=== PATIENT | male | born 1995 | race Caucasian/White ===

== ENCOUNTER 2016-10-19 01:45 | Emergency (ER) | payer BC ==
--- NOTE | 2016-10-19 01:58 | PDOC ---
History of Present Illness - General Stated Complaint: CHEST PAIN Time Seen by Provider: 10/19/16 01:55 History Source: Patient Exam Limitations: No Limitations - History of Present Illness Initial Comments: 10/19/16 02:29 21-year-old male presents to the emergency department complaining of midsternal 4/10 dull nonradiating intermittent chest pains which started at 11:30 this morning. Pain is exacerbated when laying supine alleviated at rest while sitting or standing. Patient denies any headache, dizziness, lightheadedness, nausea/vomiting, fever/chills, neck pain, shortness of breath, abdominal pains, extremity numbness or tingling sensation. Patient says he has similar episodes of chest pains for over 2 years. He has seen 2 sandfill operator surface's over the past year. The first sandfill operator surface informed him that it was irregular heart rate the second sandfill operator surface's says Presenting Symptoms: Chest Pain Timing/Duration: reports: intermittent Past History - Travel Traveled outside of the country in the last 30 days: No Close contact w/someone who was outside of country & ill: No - Past Medical History Allergies/Adverse Reactions: Allergies Allergy/AdvReac Type Severity Reaction Status Date / Time No Known Allergies Allergy Verified 10/19/16 02:13 Home Medications: Ambulatory Orders NK [No Known Home Medication] 10/19/16 Review of Systems - Review of Systems Able to Perform ROS?: Yes Comments:: 10/19/16 01:56 CONSTITUTIONAL: Absent: fever, chills, diaphoresis, generalized weakness, malaise, loss of appetite HEENT: Absent: rhinorrhea, nasal congestion, throat pain, throat swelling, difficulty swallowing, mouth swelling, ear pain, eye pain, visual Changes CARDIOVASCULAR: +chest pain Absent: loss of consciousness, palpitations, irregular heart rate, peripheral edema RESPIRATORY: Absent: cough, shortness of breath, dyspnea with exertion, orthopnea, wheezing, stridor, hemoptysis GASTROINTESTINAL: Absent: abdominal pain, abdominal distension, nausea, vomiting, diarrhea, constipation, melena, hematochezia GENITOURINARY: Absent: dysuria, frequency, urgency, hesitancy, hematuria, flank pain, genital pain MUSCULOSKELETAL: Absent: myalgia, arthralgia, joint swelling SKIN: Absent: rash, itching, pallor HEMATOLOGIC/IMMUNOLOGIC: Absent: easy bleeding, easy bruising, lymphadenopathy, frequent infections ENDOCRINE: Absent: unexplained weight gain, unexplained weight loss, heat intolerance, cold intolerance NEUROLOGIC: Absent: headache, focal weakness or paresthesias, dizziness, unsteady gait, seizure, mental status changes, bladder or bowel incontinence PSYCHIATRIC: Absent: anxiety, depression, suicidal or homicidal ideation, hallucinations. Is the patient limited Irish proficient: No *Physical Exam - Vital Signs Last Vital Signs Temp Pulse Resp BP Pulse Ox 98.4 F 67 18 146/76 99 10/19/16 02:03 10/19/16 02:03 10/19/16 02:03 10/19/16 02:03 10/19/16 02:03 - Physical Exam Comments: 10/19/16 01:57 GENERAL: Well developed, well nourished. Awake and alert. No acute distress. HEENT: Normocephalic, atraumatic. PERRLA, EOMI. No conjunctival pallor. Sclera are non- icteric. Moist mucous membranes. Oropharynx is clear. NECK: Supple. Full ROM. No JVD. Carotid pulses 2+ and symmetric, without bruits. No thyromegaly. No lymphadenopathy. CARDIOVASCULAR: Regular rate and rhythm. No murmurs, rubs, or gallops. Distal pulses are 2+ and symmetric. PULMONARY: No evidence of respiratory distress. Lungs clear to auscultation bilaterally. No wheezing, rales or rhonchi. ABDOMINAL: Soft. Non-tender. Non-distended. No rebound or guarding. No organomegaly. Normoactive bowel sounds. MUSCULOSKELETAL Normal range of motion at all joints. No bony deformities or tenderness. No CVA tenderness. EXTREMITIES: No cyanosis. No clubbing. No edema. No calf tenderness. SKIN: Warm and dry. Normal capillary refill. No rashes. No jaundice. NEUROLOGICAL: Alert, awake, appropriate. Cranial nerves 2-12 intact. No deficits to light touch and temperature in face, upper extremities and lower extremities. No motor deficits in the in face, upper extremities and lower extremities. Normoreflexic in the upper and lower extremities. Normal speech. Toes are down- going bilaterally. Gait is normal without ataxia. PSYCHIATRIC: Cooperative. Good eye contact. Appropriate mood and affect. ED Treatment Course - LABORATORY CBC & Chemistry Diagram: 10/19/16 02:20 10/19/16 03:05 - ADDITIONAL ORDERS Additional order review: Laboratory Results 10/19/16 10/19/16 10/19/16 03:05 02:20 02:20 Sodium 143 Cancelled Potassium 4.0 Cancelled Chloride 107 Cancelled Carbon Dioxide 26 Cancelled Anion Gap 10 Cancelled BUN 18 Cancelled Creatinine 1.1 Cancelled Creat Clearance w eGFR > 60 Cancelled Random Glucose 88 Cancelled Calcium 8.2 L Cancelled Total Bilirubin 0.4 Cancelled AST 17 Cancelled ALT 39 Cancelled Alkaline Phosphatase 71 Cancelled Creatine Kinase 102 Cancelled Troponin I < 0.02 Cancelled Total Protein 6.8 Cancelled Albumin 3.6 Cancelled TSH 4.66 H Cancelled 10/19/16 02:20 RBC 5.34 MCV 82.5 MCHC 33.2 RDW 13.2 MPV 8.3 Neutrophils % 52.2 Lymphocytes % 36.7 Monocytes % 7.0 Eosinophils % 3.3 Basophils % 0.8 *DC/Admit/Observation/Transfer Diagnosis at time of Disposition: Chest pain Qualifiers: Chest pain type: other chest pain Qualified Code(s): R07.89 - Other chest pain Hypothyroid Qualifiers: Hypothyroidism type: other Qualified Code(s): E03.8 - Other specified hypothyroidism - Discharge Dispostion Disposition: HOME Condition at time of disposition: Stable Admit: No - Referrals Referrals: Aren Warren MD [Staff Physician] - Jeremy Freeman MD [Staff Physician] - Chong Schuler MD [Staff Physician] - - Patient Instructions Printed Discharge Instructions: DI for Atypical Chest Pain Additional Instructions: Follow up with your sandfill operator surface and your primary care physician REturn to the ER for severe/persistent/worsening symptoms. Be sure to follow up with an neon sign erector
[2016-10-19] MEDS ORDERED: SODIUM CHLORIDE 1,000 ML IV SCH (02:00)
[2016-10-19 02:13] VITALS: TEMP 98.4; BMI 27.3
[2016-10-19 02:36] LABS: BASOPHIL 0.8 % (0-2.0); EOSINOPHIL 3.3 % (0-4.5); MCH 27.4 pg (25.7-33.7); MCHC 33.2 g/dl (32.0-35.9); MEAN CELL VOLUME 82.5 fl (80-96); MEAN PLT VOLUME 8.3 fl (7.5-11.1); NEUTROPHILS 52.2 % (42.8-82.8); PLATELET COUNT 245 K/MM3 (134-434); RDW 13.2 % (11.9-15.9); WHITE BLOOD COUNT 8.9 K/mm3 (4.0-10.0)
[2016-10-19 03:41] LABS: ALBUMIN 3.6 g/dl (3.4-5.0); ANION GAP 10 (8-16); BILIRUBIN,TOTAL 0.4 mg/dL (0.2-1.0); CALCIUM 8.2 mg/dL (8.5-10.1); CO2 26 mmol/L (21-32); COCKROFT - GAULT 118.26; CREATININE 1.1 mg/dL (0.7-1.3); GLUCOSE,RANDOM 88 mg/dL (74-106); SGOT/AST 17 U/L (15-37); SGPT/ALT 39 U/L (12-78); TOT PROT 6.8 g/dl (6.4-8.2)
[2016-10-19 03:49] LABS: ALK PHOS 71 U/L (45-117); THYROID STIMULATING HORMONE 4.66 uIU/ml (0.358-3.74); TROPONIN I < 0.02 ng/ml (0.00-0.05)
--- NOTE | 2016-10-19 14:17 | EKG ---
Test Reason : Blood Pressure : / mmHG Vent. Rate : 064 BPM Atrial Rate : 064 BPM P-R Int : 148 ms QRS Dur : 098 ms QT Int : 382 ms P-R-T Axes : 053 067 041 degrees QTc Int : 394 ms NORMAL SINUS RHYTHM NORMAL ECG NO PREVIOUS ECGS AVAILABLE BASELINE ARTIFACT Confirmed by OLGA ROMERO, CHRISTIE ([id number]) on 10/19/2016 2:16:59 PM Referred By: Confirmed By:CHRISTIE ESPINOZA MD
[2016-10-25 09:15] VITALS: BP 138/73; PULSE 65
== END 2016-10-19 04:26 | disposition home or self-care (01) ==
LOC: JER 01:45
DX: R07.89 Other chest pain (principal); E03.8 Other specified hypothyroidism
CPT/HCPCS: 36415; 80053; 82550; 84443; 84484; 85025; 93005; 93010; 99281-25; 99283-25

== ENCOUNTER 2018-03-29 19:48 | Emergency (ER) | payer BC ==
--- NOTE | 2018-03-29 19:52 | PDOC ---
Rapid Medical Evaluation Time Seen by Provider: 03/29/18 19:51 Medical Evaluation: Allergies Allergy/AdvReac Type Severity Reaction Status Date / Time No Known Allergies Allergy Verified 10/19/16 02:13 03/29/18 19:52 The patient presents with a chief complaint of: took 20 tabs tylenol pm 2 hours ago I have performed a brief in-person evaluation of this patient. Pertinent physical exam findings: vss, stable I have ordered the following: labs, tox screen The patient will proceed to the ED for further evaluation. 03/29/18 19:56
[2018-03-29 19:54] VITALS: BMI 28.1
--- NOTE | 2018-03-29 20:35 | PDOC ---
History of Present Illness - General Chief Complaint: Overdose Stated Complaint: OVERDOSE Time Seen by Provider: 03/29/18 19:51 History Source: Patient Exam Limitations: No Limitations - History of Present Illness Initial Comments: 03/29/18 20:33 Patient is a 22M with no medical history here today complaining of overdose. He states that he took about 20 tylenol PMs at 6pm because he couldn't sleep. Patient denies SI/HI, intent to hurt himself. Denies psychiatric history, but states that he did do this before. Endorses nausea, but states that otherwise he feels find. Denies fevers, chills, vomiting, chest pain, shortness of breath , abdominal pain and dysuria. Denies illicit drug use, denies etoh, denies coingestants. Past History - Past Medical History Allergies/Adverse Reactions: Allergies Allergy/AdvReac Type Severity Reaction Status Date / Time No Known Allergies Allergy Verified 10/19/16 02:13 Home Medications: Ambulatory Orders NK [No Known Home Medication] 10/19/16 COPD: No - Suicide/Smoking/Psychosocial Hx Smoking History: Current every day smoker Have you smoked in the past 12 months: Yes Number of Cigarettes Smoked Daily: 7 Information on smoking cessation initiated: No Hx Alcohol Use: Yes Drug/Substance Use Hx: No Substance Use Type: None Review of Systems - Review of Systems Comments:: 03/29/18 20:34 GENERAL/CONSTITUTIONAL: No fever or chills. No weakness. HEAD, EYES, EARS, NOSE AND THROAT: No change in vision. No sore throat. CARDIOVASCULAR: No chest pain or shortness of breath RESPIRATORY: No cough, wheezing, or hemoptysis. GASTROINTESTINAL: +nausea, no vomiting, diarrhea or constipation. GENITOURINARY: No dysuria, frequency, or change in urination. MUSCULOSKELETAL: No joint or muscle swelling or pain. No neck or back pain. SKIN: No rash NEUROLOGIC: No headache, vertigo, loss of consciousness, or change in strength/ sensation. ENDOCRINE: No increased thirst. No abnormal weight change HEMATOLOGIC/LYMPHATIC: No anemia, easy bleeding, or history of blood clots. ALLERGIC/IMMUNOLOGIC: No hives or skin allergy. *Physical Exam - Vital Signs Last Vital Signs Temp Pulse Resp BP Pulse Ox 98.1 F 80 18 149/90 100 03/29/18 19:52 03/29/18 19:52 03/29/18 19:52 03/29/18 19:52 03/29/18 19:52 - Physical Exam Comments: 03/29/18 20:34 GENERAL: Awake, alert, and fully oriented, in no acute distress PSYCH: Denies SI/HI, normal affect, no pressured speech, no flight of ideas. HEAD: No signs of trauma, normocephalic, atraumatic EYES: PERRLA, EOMI, sclera anicteric, conjunctiva clear ENT: Auricles normal inspection, hearing grossly normal, nares patent, oropharynx clear without exudates. Moist mucosa NECK: Normal ROM, supple, no lymphadenopathy, JVD, or masses LUNGS: No distress, speaks full sentences, clear to auscultation bilaterally HEART: Regular rate and rhythm, normal S1 and S2, no murmurs, rubs or gallops, peripheral pulses normal and equal bilaterally. ABDOMEN: Soft, nontender, normoactive bowel sounds. No guarding, no rebound. No masses EXTREMITIES: Normal inspection, Normal range of motion, no edema. No clubbing or cyanosis. NEUROLOGICAL: Cranial nerves II through XII grossly intact. Normal speech, normal gait, no focal sensorimotor deficits SKIN: Warm, Dry, normal turgor, no rashes or lesions noted. ED Treatment Course - LABORATORY CBC & Chemistry Diagram: 03/29/18 20:35 03/29/18 20:35 Medical Decision Making - Medical Decision Making 03/29/18 20:40 Patient is 22M here today with overdose. 1:1 ordered, charge nurse notified. Vitals normal and stable. DDx includes, but is not limited to: acetaminophen overdose, salicylate overdose, tca overdose. Patient seems reliable, gives timeline of tylenol level. Will draw level at 2200. Will contact poison control after completion of ekg. Will also do basic labs, utox. 03/29/18 22:10 EKG shows normal sinus rhythm with rate of 77. No st elevations/depressions. No significant t wave abnormality. Intervals normal. Normal axis. CBC, CMP normal. ETOH 20. Poison control contacted ([facility] #[id number]). Suggests 4 hr tylenol and 8 hr tylenol levels. Concern is that benadryl may slow tylenol's appearance in blood. 03/29/18 23:18 Tylenol 42, patient needs 2am tylenol level. 03/29/18 23:[address] Angela. *DC/Admit/Observation/Transfer Diagnosis at time of Disposition: Overdose - Discharge Dispostion Condition at time of disposition: Stable - Referrals - Patient Instructions - Post Discharge Activity
[2018-03-29 20:52] LABS: EOS % 5.1 % (0-4.5); HEMATOCRIT 45.2 % (35.4-49); HEMOGLOBIN 15.1 GM/dL (11.7-16.9); LYMPH % 19.8 % (8-40); MCH 28.4 pg (25.7-33.7); MCHC 33.3 g/dl (32.0-35.9); MEAN CELL VOLUME 85.2 fl (80-96); MEAN PLT VOLUME 7.6 fl (7.5-11.1); MONO % 7.2 % (3.8-10.2); NEUT % 66.9 % (42.8-82.8); PLATELET COUNT 260 K/MM3 (134-434); RBC 5.31 M/mm3 (4.00-5.60); RDW 13.7 % (11.9-15.9); WHITE BLOOD COUNT 6.7 K/mm3 (4.0-10.0)
[2018-03-29 21:22] LABS: ALK PHOS 62 U/L (45-117); ANION GAP 8 MMOL/L (8-16); BILIRUBIN,TOTAL 0.4 mg/dL (0.2-1); BLOOD UREA NITROGEN 9 mg/dL (7-18); CALCIUM 9.2 mg/dL (8.5-10.1); CHLORIDE 108 mmol/L (98-107); CO2 29 mmol/L (21-32); GLUCOSE,RANDOM 73 mg/dL (74-106); SGOT/AST 17 U/L (15-37); SGPT/ALT 27 U/L (13-61); SODIUM 145 mmol/L (136-145); TOT PROT 7.3 g/dl (6.4-8.2)
--- NOTE | 2018-03-29 21:34 | PDOC ---
Attending Attestation - HPI HPI: 03/29/18 21:34 The patient is a 22 year old male, with no significant past medical history, who presents to the emergency department via ems after taking about 20 Tylenol PMs at 6PM over the course of a 30 minute period in attempt to go to sleep. He states he has been working a lot and was unable to fall asleep. He denies suicidal ideation. He denies homicidal ideation. He reports mild nausea, but denies vomiting. The patient denies chest pain, shortness of breath, headache and dizziness. The patient denies fever, chills, vomit, diarrhea and constipation. The patient denies dysuria, frequency, urgency and hematuria. Allergies: NKDA Past surgical history: none reported - Physicial Exam PE: 03/29/18 21:34 GENERAL: Awake, alert, and fully oriented, in no acute distress HEAD: No signs of trauma EYES: PERRLA, EOMI, sclera anicteric, conjunctiva clear ENT: Auricles normal inspection, hearing grossly normal, nares patent, oropharynx clear without exudates. Moist mucosa NECK: Normal ROM, supple, no lymphadenopathy, JVD, or masses LUNGS: Breath sounds equal, clear to auscultation bilaterally. No wheezes, and no crackles HEART: Regular rate and rhythm, normal S1 and S2, no murmurs, rubs or gallops ABDOMEN: Soft, nontender, normoactive bowel sounds. No guarding, no rebound. No masses EXTREMITIES: Normal range of motion, no edema. No clubbing or cyanosis. No cords, erythema, or tenderness NEUROLOGICAL: Cranial nerves II through XII grossly intact. Normal speech, normal gait SKIN: Warm, Dry, normal turgor, no rashes or lesions noted. PSYCH: Normal mood. Normal affect. Appropriate. - Medical Decision Making 03/29/18 21:35 Documentation prepared by Christa Mcadams, acting as outside medical sales representative for Clotilde Watkins MD <Christa Mcadams - Last Filed: 03/29/18 21:34> - Resident Resident Name: Brent Niño - ED Attending Attestation I have performed the following: I have examined & evaluated the patient, The case was reviewed & discussed with the resident, I agree w/resident's findings & plan, Exceptions are as noted - Medical Decision Making Pt denies SI. States he has been having a lot of stress lately, has not been sleeping well. Attempted to take tylenol PM out of frustration. I educated him on the risks of overdosing on both acetaminophen and diphenhydramine. Awaiting the 4 hr point to check tylenol level (ingestion was around 6pm). <Clotilde Watkins - Last Filed: 03/29/18 22:28>
--- NOTE | 2018-03-30 02:53 | PDOC ---
*Physical Exam - Vital Signs Last Vital Signs Temp Pulse Resp BP Pulse Ox 97.8 F 62 20 128/82 100 03/29/18 23:00 03/29/18 23:00 03/29/18 23:00 03/29/18 23:00 03/29/18 23:00 ED Treatment Course - LABORATORY CBC & Chemistry Diagram: 03/29/18 20:35 03/29/18 20:35 - ADDITIONAL ORDERS Additional order review: Laboratory Results 03/30/18 03/29/18 03/29/18 02:16 22:01 20:35 Sodium 145 Potassium 4.0 Chloride 108 H Carbon Dioxide 29 Anion Gap 8 BUN 9 Creatinine 1.0 Creat Clearance w eGFR > 60 Random Glucose 73 L Calcium 9.2 Total Bilirubin 0.4 AST 17 ALT 27 Alkaline Phosphatase 62 Total Protein 7.3 Albumin 4.0 Salicylates < 1.7 L Acetaminophen 7.6 L 42.5 H Alcohol, Quantitative 23.4 H 03/29/18 20:35 RBC 5.31 MCV 85.2 MCHC 33.3 RDW 13.7 MPV 7.6 Neutrophils % 66.9 D Lymphocytes % 19.8 D Monocytes % 7.2 Eosinophils % 5.1 H Basophils % 1.0 Medical Decision Making - Medical Decision Making Patient presenting with Tylenol overdose. APAP level was 40s at 4 hours and 7 at 8 hours. This was an accidental overdose and patient denies SI/HI/AH/VH so will DC home with return precautions and follow up instructions. 03/30/18 02:49 *DC/Admit/Observation/Transfer Diagnosis at time of Disposition: Overdose Qualifiers: Encounter type: initial encounter Injury intent: accidental or unintentional Qualified Code(s): T50.901A - Poisoning by unspecified drugs, medicaments and biological substances, accidental (unintentional), initial encounter - Discharge Dispostion Disposition: HOME Condition at time of disposition: Improved Decision to Admit order: No - Referrals Referrals: [facility] [place] [Provider Group] - Patient Instructions Printed Discharge Instructions: Acetaminophen Additional Instructions: Please do not use more than the recommended amount of medications when using over the counter medications. Tylenol is very dangerous and can destroy your liver. Please follow up with your primary care physician in the morning. If you do not have a primary care physician, please follow up with our clinic on this sheet of paper. Please return to our ED if you have any new or worsening symptoms. - Post Discharge Activity
[2018-03-30 03:06] VITALS: BP 139/82; PULSE 66; TEMP 98.3
--- NOTE | 2018-03-30 10:52 | EKG ---
Test Reason : Blood Pressure : / mmHG Vent. Rate : 077 BPM Atrial Rate : 077 BPM P-R Int : 136 ms QRS Dur : 094 ms QT Int : 378 ms P-R-T Axes : 047 062 032 degrees QTc Int : 427 ms NORMAL SINUS RHYTHM NORMAL ECG Confirmed by MD USHA, FAUSTO ([id number]) on 03/30/2018 10:52:22 AM Referred By: Confirmed By:FAUSTO KERR MD
== END 2018-03-30 03:05 | disposition home or self-care (01) ==
LOC: JER 19:48
DX: T39.1X1A Poisoning by 4-Aminophenol derivatives, accidental (unintentional), initial encounter (principal); Y92.89 Other specified places as the place of occurrence of the external cause; Y93.9 Activity, unspecified
CPT/HCPCS: 36415; 80053; 80307; 85025; 93005; 93010; 99283-25

== ENCOUNTER 2021-06-18 16:38 | Inpatient (IN) | payer OTHER ==
[2021-06-18 16:56] VITALS: BMI 25.4
[2021-06-18] MEDS ORDERED: MENTHOL/PHENOL 1 EACH UD MM PRN (17:11)
[2021-06-18] MEDS ORDERED: MAGNESIUM HYDROX 2400MG/30ML ORAL SUSPENSION 30 ML CUP PO PRN (17:11)
[2021-06-18] MEDS ORDERED: MAG HYDROX/AL HYDROX/SIMETH 30 ML UNIT-DOSE CUP PO PRN (17:11)
[2021-06-18] MEDS ORDERED: ONDANSETRON *ODT* 4 MG TABLET SL PRN (17:11)
[2021-06-18] MEDS ORDERED: ACETAMINOPHEN 325 MG TABLET (FP) PO PRN ×2 (17:11)
[2021-06-18] MEDS ORDERED: MAGNESIUM CITRATE 300 ML BOTTLE PO PRN (17:11)
[2021-06-18] MEDS ORDERED: IBUPROFEN 400 MG TABLET (FP) PO PRN (17:11)
[2021-06-18] MEDS ORDERED: BISMUTH SUBSALICYLATE 524 MG/30 ML PO PRN (17:11)
[2021-06-18] MEDS ORDERED: chlordiazePOXIDE HCL 25 MG CAPSULE PO PRN (17:12)
[2021-06-18] MEDS: hydrOXYzine PAMOATE 25 MG CAPSULE (FP) PO PRN (19:10)
[2021-06-18] MEDS: chlordiazePOXIDE HCL 25 MG CAPSULE PO SCH ×2 (19:14→22:19)
[2021-06-18] MEDS ORDERED: MELATONIN 5 MG TABLETS PO SCH (22:00)
[2021-06-18] MEDS: THIAMINE HCL 100 MG TABLET (FP) PO SCH (22:19)
[2021-06-19] MEDS: chlordiazePOXIDE HCL 25 MG CAPSULE PO SCH ×3 (06:36→19:51)
[2021-06-19] MEDS: PRENATAL VITAMINS W/ FOLIC ACID TABLET (FP) PO SCH (09:31)
[2021-06-19] MEDS: METHOCARBAMOL 500 MG TABLET PO PRN (09:32)
[2021-06-19] MEDS: hydrOXYzine PAMOATE 25 MG CAPSULE (FP) PO PRN (09:32)
[2021-06-19 10:46] LABS: ALBUMIN 3.7 g/dl (3.4-5.0); BLOOD UREA NITROGEN 8.2 mg/dL (7-18)
[2021-06-19 10:49] LABS: CREATININE 0.8 mg/dL (0.55-1.3)
[2021-06-19 10:55] LABS: BILIRUBIN,TOTAL 0.5 mg/dL (0.2-1)
[2021-06-19 11:05] LABS: HEMATOCRIT 42.6 % (35.4-49); HEMOGLOBIN 14.4 GM/dL (11.7-16.9); MCH 28.5 pg (25.7-33.7); MCHC 33.9 g/dl (32.0-35.9); MEAN CELL VOLUME 84.1 fl (80-96); MEAN PLT VOLUME 8.1 fl (7.5-11.1); PLATELET COUNT 192 10^3/uL (134-434); RBC 5.06 M/mm3 (4.00-5.60); RDW 13.6 % (11.9-15.9)
[2021-06-19] MEDS ORDERED: MELATONIN 5 MG TABLETS PO SCH (22:00)
[2021-06-20] MEDS: chlordiazePOXIDE HCL 25 MG CAPSULE PO SCH ×4 (00:33→19:17)
[2021-06-20] MEDS: THIAMINE HCL 100 MG TABLET (FP) PO SCH (00:34)
[2021-06-20] MEDS: hydrOXYzine PAMOATE 25 MG CAPSULE (FP) PO PRN (10:01)
[2021-06-20] MEDS: PRENATAL VITAMINS W/ FOLIC ACID TABLET (FP) PO SCH (10:01)
[2021-06-20] MEDS: METHOCARBAMOL 500 MG TABLET PO PRN (10:01)
[2021-06-20 18:30] VITALS: BP 131/78; PULSE 84; TEMP 96.8
[2021-06-21] MEDS ORDERED: chlordiazePOXIDE HCL 10 MG CAPSULE PO PRN
[2021-06-21] MEDS ORDERED: chlordiazePOXIDE HCL 10 MG CAPSULE PO SCH (05:00)
[2021-06-22] MEDS ORDERED: chlordiazePOXIDE HCL 10 MG CAPSULE PO SCH (05:00)
[2021-06-23] MEDS ORDERED: chlordiazePOXIDE HCL 10 MG CAPSULE PO ONE (05:00)
== END 2021-06-20 18:10 | disposition left against medical advice (07) | DRG 770 ==
LOC: YASAS 16:38 → Y6N 18:17
PROVIDERS: ADMIT Allergy & Immunology; ATTEND Allergy & Immunology
PROC: HZ2ZZZZ Detoxification Services for Substance Abuse Treatment (ICD-10-PCS; principal; 2021-06-18)
DX: F10.230 Alcohol dependence with withdrawal, uncomplicated (principal); F10.220 Alcohol dependence with intoxication, uncomplicated; F10.282 Alcohol dependence with alcohol-induced sleep disorder; F17.210 Nicotine dependence, cigarettes, uncomplicated; U07.1 COVID-19; R00.0 Tachycardia, unspecified; Z56.0 Unemployment, unspecified
CPT/HCPCS: 36415; 80053; 85027; 86780; C9803; U0003; U0005

== ENCOUNTER 2023-12-30 10:17 | Inpatient (IN) | payer BC ==
[2023-12-30 10:39] VITALS: BMI 25.8
[2023-12-30] MEDS ORDERED: MAGNESIUM HYDROX 2400MG/30ML ORAL SUSPENSION 30 ML CUP PO PRN (11:36)
[2023-12-30] MEDS ORDERED: guaiFENesin 600 MG TABLET.ER (FP) PO PRN (11:36)
[2023-12-30] MEDS ORDERED: POLYETHYLENE GLYCOL (HEALTHYLAX) 3350 17 GM PACKET PO PRN (11:36)
[2023-12-30] MEDS ORDERED: IBUPROFEN 400 MG TABLET (FP) PO PRN (11:36)
[2023-12-30] MEDS ORDERED: BISMUTH SUBSALICYLATE 262 MG/15 ML BTL PO PRN (11:36)
[2023-12-30] MEDS ORDERED: BENZONATATE 200 MG CAPSULE PO PRN (11:36)
[2023-12-30] MEDS ORDERED: MAG HYDROX/AL HYDROX/SIMETH 30 ML UNIT-DOSE CUP PO PRN (11:36)
[2023-12-30] MEDS ORDERED: IBUPROFEN 600 MG TABLET (FP) PO PRN (11:36)
[2023-12-30] MEDS ORDERED: LOPERAMIDE HCL 2 MG CAPSULE PO PRN (11:36)
[2023-12-30] MEDS ORDERED: DICYCLOMINE HCL 10 MG CAPSULE PO PRN (11:36)
[2023-12-30] MEDS ORDERED: BENZOCAINE/MENTHOL (CHLORASEPTIC ) LOZENGE MM PRN (11:36)
[2023-12-30] MEDS ORDERED: ONDANSETRON *ODT* 4 MG TABLET SL PRN (11:36)
[2023-12-30] MEDS: METHOCARBAMOL 500 MG TABLET PO PRN (12:23)
[2023-12-30] MEDS: hydrOXYzine PAMOATE 25 MG CAPSULE (FP) PO PRN (12:23)
[2023-12-30] MEDS: chlordiazePOXIDE HCL 25 MG CAPSULE PO PRN (12:28)
[2023-12-30] MEDS ORDERED: NICOTINE POLACRILEX 2 MG GUM BC PRN (12:36)
[2023-12-30] MEDS: chlordiazePOXIDE HCL 25 MG CAPSULE PO SCH (17:30)
[2023-12-30] MEDS: ACETAMINOPHEN 325 MG TABLET (FP) PO PRN (19:40)
[2023-12-30] MEDS: MELATONIN 5 MG TABLETS PO SCH (22:37)
[2023-12-30] MEDS: THIAMINE 100 MG TABLET PO SCH (22:37)
[2023-12-31 08:59] LABS: POTASSIUM 3.3 mmol/L (3.5-5.1)
[2023-12-31 09:00] LABS: HEMATOCRIT 41.7 % (35.4-49); HEMOGLOBIN 14.3 GM/dL (11.7-16.9); MCH 28.8 pg (25.7-33.7); MCHC 34.3 g/dl (32.0-35.9); MEAN CELL VOLUME 83.9 fl (80-96); MEAN PLT VOLUME 7.5 fl (7.5-11.1); PLATELET COUNT 238 10^3/uL (134-434); RBC 4.97 M/mm3 (4.00-5.60); RDW 13.7 % (11.9-15.9); WHITE BLOOD COUNT 5.4 K/mm3 (4.0-10.0)
[2023-12-31 09:06] LABS: ALBUMIN 3.9 g/dl (3.4-5.0); BLOOD UREA NITROGEN 11.7 mg/dL (7-18); CALCIUM 9.4 mg/dL (8.5-10.1)
[2023-12-31 09:09] LABS: CREATININE 0.8 mg/dL (0.55-1.3)
[2023-12-31 09:11] LABS: BILIRUBIN,TOTAL 0.9 mg/dL (0.2-1); TOT PROT 6.9 g/dl (6.4-8.2)
[2023-12-31] MEDS: PRENATAL VITAMINS W/ FOLIC ACID TABLET (FP) PO SCH (10:30)
[2023-12-31] MEDS: POTASSIUM CHLORIDE ORAL LIQUID 20 MEQ/15 ML PO SCH (10:30)
[2023-12-31 17:26] VITALS: BP 137/91; PULSE 104; RESP 18; TEMP 98.6
[2024-01-01] MEDS ORDERED: chlordiazePOXIDE HCL 25 MG CAPSULE PO SCH (05:00)
[2024-01-02] MEDS ORDERED: chlordiazePOXIDE HCL 10 MG CAPSULE PO PRN
[2024-01-02] MEDS ORDERED: chlordiazePOXIDE HCL 10 MG CAPSULE PO SCH (05:00)
[2024-01-03] MEDS ORDERED: chlordiazePOXIDE HCL 10 MG CAPSULE PO SCH (05:00)
[2024-01-04] MEDS ORDERED: chlordiazePOXIDE HCL 10 MG CAPSULE PO ONE (05:00)
== END 2023-12-31 17:30 | disposition left against medical advice (07) | DRG 770 ==
LOC: YASAS 10:17 → Y6N 11:50
PROVIDERS: ADMIT Allergy & Immunology; ATTEND Surgery
PROC: HZ2ZZZZ Detoxification Services for Substance Abuse Treatment (ICD-10-PCS; principal; 2023-12-30)
DX: F10.230 Alcohol dependence with withdrawal, uncomplicated (principal); F17.210 Nicotine dependence, cigarettes, uncomplicated; E87.6 Hypokalemia; E03.9 Hypothyroidism, unspecified
CPT/HCPCS: 36415; 80053; 80305; 85027; 86780; 93005; 93010